=== PATIENT | female | born 1980 | race Caucasian/White ===

== ENCOUNTER 2024-09-18 18:39 | Emergency (ER) | payer MEDICAID ==
[~2024-09-18] VITALS: Ht 177.8 cm; Wt 66.0 kg
[~2024-09-18 18:39] MED LIST: BUPR2TAB SL; CEPH500C2 PO; SULF1TAB48 PO
[2024-09-18 18:44] VITALS: BP 93/37; PULSE 88; RESP 18; TEMP 98.4; O2SAT 100
[2024-09-18 20:39] LABS: BASOPHILS % 0.6 % (0.0-2.0); EOSINOPHILS % 3.4 % (0.0-5.0); HEMATOCRIT. 35.6 % (36.0-48.0); HEMOGLOBIN. 11.8 g/dL (12.0-16.0); LYMPHOCYTES % 11.8 % (20.0-50.0); MEAN CORPUSCULAR HEMOGLOBIN 30.8 pg (28.0-32.0); MEAN CORPUSCULAR HGB CONC 33.3 g/dL (31.0-37.0); MEAN CORPUSCULAR VOLUME 92.6 fL (81.0-99.0); MEAN PLATELET VOLUME 8.2 fl (7.4-10.4); MONOCYTES % 10.8 % (2.0-8.0); NEUTROPHILS % 73.4 % (40.0-76.0); PLATELET 284 x1000/uL (130-400); RED BLOOD CELL COUNT 3.84 mill/uL (4.2-5.4); RED CELL DISTRIBUTION WIDTH 13.7 % (11.6-14.6); WHITE BLOOD COUNT 7.1 x1000/uL (4.5-11.0)
[2024-09-18 20:56] LABS: CHLORIDE 100 mEq/L (98-107); POTASSIUM 4.2 mEq/L (3.5-5.1); SODIUM 136 mEq/L (136-145)
[2024-09-18 20:57] LABS: CALCIUM 9.3 mg/dL (8.7-10.4); CARBON DIOXIDE 32 mEq/L (21-32)
[2024-09-18 21:02] LABS: GLUCOSE 76 mg/dL (70-105); UREA NITROGEN BLOOD 16 mg/dL (9-23)
== END 2024-09-18 22:55 | disposition home or self-care (01) ==
LOC: ER 18:39
DX: R60.0 Localized edema (principal); M79.89 Other specified soft tissue disorders; F31.9 Bipolar disorder, unspecified; F20.9 Schizophrenia, unspecified; F41.9 Anxiety disorder, unspecified; F15.10 Other stimulant abuse, uncomplicated; Z88.1 Allergy status to other antibiotic agents
CPT/HCPCS: 36415; 80048; 83880; 85025; 85379; 99283